=== PATIENT | female | born 1990 | race African-American/Black ===

== ENCOUNTER 2017-09-05 19:43 | Emergency (ER) | payer OTHER ==
[2017-09-05 20:33] VITALS: BP 127/78; PULSE 108; TEMP 97.8; BMI 21.0
[2017-09-05] MEDS ORDERED: ONDANSETRON 4 MG/2 ML VIAL IVPUSH ONE (21:14)
[2017-09-05] MEDS ORDERED: SODIUM CHLORIDE 0.9% 1000 ML INFUS.BAG IV ONE (21:14)
--- NOTE | 2017-09-05 21:14 | PDOC ---
History of Present Illness - General History Source: Patient Exam Limitations: No Limitations - History of Present Illness Initial Comments: 09/05/17 21:58 Patient is a 27 year old female, ,who is 12 weeks with a significant past medical history of asthma who presents to the ED with complaints of nausea and bloody vomiting that began this afternoon. She reports experiencing intermittent episodes of nausea throughout her . Patient states she experienced x2 episodes of vomiting today, with one episode of the episodes containing blood. Patient states she became worried by the bloody vomiting and decided to come in to the ED for further evaluation. Patient's this is her first and states her first [employer]OR appointment is this . Denies vaginal bleeding, vaginal discharge. Denies nausea, vomiting. Denies fever, chills. Denies any other symptoms. Allergies: None Social history: No smoking. No alcohol. No illicit drugs. Surgical history: None PMD: Dr. Dennis. <Alfie Villafuerte - Last Filed: 09/05/17 21:58> <Simon Ferro - Last Filed: 09/06/17 00:21> - General Chief Complaint: Nausea/Vomiting Stated Complaint: NAUSEA/VOMITING/12 WKS Time Seen by Provider: 09/05/17 21:14 Past History <Alfie Villafuerte - Last Filed: 09/05/17 21:58> - Past Medical History Asthma: Yes - Suicide/Smoking/Psychosocial Hx Smoking Status: No Smoking History: Never smoked Number of Cigarettes Smoked Daily: 0 <Simon Ferro - Last Filed: 09/06/17 00:21> - Past Medical History Allergies/Adverse Reactions: Allergies Allergy/AdvReac Type Severity Reaction Status Date / Time shellfish derived Allergy Hives Verified 09/05/17 20:29 oranges Allergy Severe Swelling Uncoded 09/05/17 20:29 Home Medications: Ambulatory Orders No Home Medications 0 dose .ROUTE UTDICT 03/03/13 Review of Systems - Review of Systems Able to Perform ROS?: Yes Comments:: 09/05/17 21:58 ROS: A complete review of 10 out of 10 review of systems is taken and is negative apart from what is previously mentioned below and in the HPI. All Other Systems: Reviewed and Negative <Alfie Villafuerte - Last Filed: 09/05/17 21:58> *Physical Exam - Vital Signs Last Vital Signs Temp Pulse Resp BP Pulse Ox 97.8 F 108 H 18 127/78 100 09/05/17 20:25 09/05/17 20:25 09/05/17 20:25 09/05/17 20:25 09/05/17 20:25 - Physical Exam Comments: 09/05/17 21:58 Vitals: Triage Vital signs reviewed General Appearance: no acute distress, well nourished well developed Head: Atraumatic Eyes: Pupils equal reactive round, extraocular movement intact Chest Wall: Nontender Cardiac: Regular rate and rhythm, no murmurs, no rubs, no gallops Lungs: Clear to auscultation bilateral, good air movement bilaterally Abdomen: Soft, non distended, normal bowel sounds, non tender to palpation Extremities: Full range of motion to all extremities, no cyanosis, clubbing, or edema Skin: Warm and dry, no rashes or lesions, no rash, no petechiae Neuro: AOX3; Cranial Nerves 2-12 grossly intact, Strength intact to all extremities, Sensation intact to all extremities, gait normal Psych: Normal mood, normal affect <Alfie Villafuerte - Last Filed: 09/05/17 21:58> - Vital Signs Last Vital Signs Temp Pulse Resp BP Pulse Ox 97.8 F 108 H 18 127/78 100 09/05/17 20:25 09/05/17 20:25 09/05/17 20:25 09/05/17 20:25 09/05/17 20:25 <Simon Ferro - Last Filed: 09/06/17 00:21> ED Treatment Course - LABORATORY CBC & Chemistry Diagram: 09/05/17 22:20 09/05/17 22:20 <Simon Ferro - Last Filed: 09/06/17 00:21> Medical Decision Making - Medical Decision Making 09/06/17 00:19 Well-appearing apparent distress 1 day history of nausea vomiting 2 no abdominal pain on examination labs within normal limits ultrasound demonstrates a live intrauterine . Patient has follow-up with her [employer] DIRECTOR this We'll discharge with prescription for Zofran she'll follow-up on she' ll return to the emergency department for any severe worsening symptoms or for any concerns. <Simon Ferro - Last Filed: 09/06/17 00:21> *DC/Admit/Observation/Transfer - Attestations Scribe Attestion: 09/05/17 21:59 Documentation prepared by Alfie Villafuerte, acting as medical education manager for Simon Ferro MD, /DO. <Alfie Villafuerte - Last Filed: 09/05/17 21:58> - Discharge Dispostion Admit: No <Simon Ferro - Last Filed: 09/06/17 00:21> Diagnosis at time of Disposition: Nausea & vomiting Qualifiers: Vomiting type: unspecified Vomiting Intractability: unspecified Qualified Code( s): R11.2 - Nausea with vomiting, unspecified - Discharge Dispostion Disposition: HOME - Referrals Referrals: Jose De Jesus Dennis [Primary Care Provider] - - Patient Instructions Printed Discharge Instructions: DI for Vomiting -- Adult Additional Instructions: Zofran as prescribed. Drink plenty of fluids. If no vomiting by tomorrow okay to proceed to a bland diet. Follow-up with your [employer] ACC[employer] DIRECTOR as scheduled this . Return to ED for any abdominal pain vaginal bleeding severe worsening symptoms or for any concerns. - Post Discharge Activity
[2017-09-05] MEDS ORDERED: ONDANSETRON 4 MG/2 ML VIAL ONE (22:23)
[2017-09-05 22:26] LABS: URINE APPEARANCE SLCLOUDY; URINE BILIRUBIN NEGATIVE (NEGATIVE); URINE BLOOD NEGATIVE (NEGATIVE); URINE COLOR LTYELLOW; URINE GLUCOSE (UA) NEGATIVE (NEGATIVE); URINE KETONE NEGATIVE (NEGATIVE); URINE LEUK ESTERASE NEGATIVE (NEGATIVE); URINE NITRITE NEGATIVE (NEGATIVE); URINE PROTEIN NEGATIVE (NEGATIVE); URINE UROBILINOGEN NEGATIVE mg/dL (0.2-1.0)
[2017-09-05 22:27] LABS: BASO % 0.3 % (0-2.0); EOS % 1.4 % (0-4.5); MCH 26.7 pg (25.7-33.7); MCHC 32.7 g/dl (32.0-36.0); MEAN CELL VOLUME 81.7 fl (80-96); MEAN PLT VOLUME 8.2 fl (7.5-11.1); NEUT % 65.2 % (42.8-82.8); PLATELET COUNT 196 K/MM3 (134-434); RDW 13.6 % (11.6-15.6); URINE APPEARANCE SLCLOUDY; URINE BILIRUBIN NEGATIVE (NEGATIVE); URINE BLOOD NEGATIVE (NEGATIVE); URINE COLOR LTYELLOW; URINE GLUCOSE (UA) NEGATIVE (NEGATIVE); URINE KETONE NEGATIVE (NEGATIVE); URINE LEUK ESTERASE NEGATIVE (NEGATIVE); URINE NITRITE NEGATIVE (NEGATIVE); URINE PROTEIN NEGATIVE (NEGATIVE); URINE UROBILINOGEN NEGATIVE mg/dL (0.2-1.0); WHITE BLOOD COUNT 8.5 K/mm3 (4.0-10.0)
[2017-09-05 23:05] LABS: ALBUMIN 3.3 g/dl (3.4-5.0); ALK PHOS 47 U/L (45-117); ANION GAP 6 (8-16); BILIRUBIN,TOTAL 0.3 mg/dL (0.2-1.0); CALCIUM 8.1 mg/dL (8.5-10.1); CO2 27 mmol/L (21-32); CREATININE 0.6 mg/dL (0.55-1.02); GLUCOSE,RANDOM 84 mg/dL (74-106); SGOT/AST 10 U/L (15-37); SGPT/ALT 13 U/L (12-78); TOT PROT 6.8 g/dl (6.4-8.2)
[2017-09-06 10:45] LABS: URINE LEUK ESTERASE Negative (NEGATIVE)
[2017-09-06 11:03] LABS: URINE LEUK ESTERASE Negative (NEGATIVE)
== END 2017-09-06 01:15 | disposition home or self-care (01) ==
LOC: JER 19:43
PROC: 3E0337Z Introduction of Electrolytic and Water Balance Substance into Peripheral Vein, Percutaneous Approach (ICD-10-PCS; principal; 2017-09-05)
PROC: 3E033GC Introduction of Other Therapeutic Substance into Peripheral Vein, Percutaneous Approach (ICD-10-PCS; 2017-09-05)
DX: O26.891 Other specified pregnancy related conditions, first trimester (principal); Z3A.12 12 weeks gestation of pregnancy; R11.2 Nausea with vomiting, unspecified
CPT/HCPCS: 36415; 76815; 80053; 81003; 82009; 84702; 84703; 85025; 87086; 96374; 99281-25; 99283-25